=== PATIENT | male | born 1980 | race Caucasian/White ===

== ENCOUNTER 2017-02-21 22:25 | Emergency (ER) | payer OTHER ==
[~2017-02-21] VITALS: Ht 177.8 cm; Wt 90.0 kg
[2017-02-22] MEDS ORDERED: ORPHENADRINE100 MG PO (01:05)
[2017-02-22] MEDS ORDERED: PERCOCET 5/325M1 TAB PO (01:05)
[2017-02-22 01:10] VITALS: BP 134/71
== END 2017-02-22 01:15 | disposition home or self-care (01) | DRG 552 ==
LOC: ED 22:25
DX: M43.6 Torticollis (principal); F17.210 Nicotine dependence, cigarettes, uncomplicated

== ENCOUNTER 2024-02-26 17:10 | Emergency (ER) | payer SELFPAY ==
[2024-02-26] VITALS (7 sets, daily range): BP systolic 97–154; BP diastolic 56–94
[~2024-02-26] VITALS: Ht 177.8 cm; Wt 97.0 kg
[~2024-02-26 17:10] MED LIST: ORPHENADRINE100 MG PO; PERCOCET 5/325M1 TAB PO
== END 2024-02-26 18:49 | disposition home or self-care (01) | DRG 558 ==
LOC: ED 17:10
DX: M77.8 Other enthesopathies, not elsewhere classified (principal); F17.200 Nicotine dependence, unspecified, uncomplicated